=== PATIENT | male | born 1940 | race Caucasian/White ===

== ENCOUNTER 2017-02-05 15:55 | Inpatient (IN) | payer OTHER ==
[~2017-02-05] VITALS: Ht 182.9 cm; Wt 80.7 kg
--- NOTE | ~2017-02-05 | HC ---
[facility] [place] [address] CONSULTATION Name: VENUS BRENNAN Room #: 422-P ADM IN M.R.#: [id number] Admission: 02/05/17 Attend Phys: Jeffery Phillips Discharge: Date of : 42 Report #: [id number] THIS REPORT FOR: //name// CC: Lucien Gerard [facility] Jamey Lanier DO REASON FOR CONSULTATION: Reported history of metastatic adenocarcinoma. HISTORY OF PRESENT ILLNESS: The patient is a 76-year-old gentleman, who may not be the best historian, who had right flank pain who has been evaluated at the [facility], was found to have some masses in his liver and underwent a biopsy that reportedly shows adenocarcinoma. The patient does not recall whether they told or whether he had any idea where this began. He is also not clear to what treatment options they gave to him and seems quite fuzzy and I am not sure if he is either tired, if this is from medications or some cognitive impairment or mental blocking on his part, I do not know. I tried paging/texting his primary care physician to ask about details and I have not heard back. Also, I tried calling the patient's cousin, Chandrakant Irving at [phone] and no one picked up the phone. The patient at this time denies any fevers or chills. He does not feel short of breath, does feel tired. He has lost about 25 pounds in the past 6 months to a year. He has not had any blood in his urine or stool. He did have some slight queasiness and more of a generalized weakness more than anything and right abdominal pain. PAST MEDICAL HISTORY: Notable for history of stage I bladder cancer, resected with a cystectomy and a cruciate ileostomy in about 2001, also supposed history of recurrent UTIs, the recent cancer in his liver, also hypertension. ALLERGIES: HE HAS HAD TROUBLE WITH SIMVASTATIN. SOCIAL HISTORY: He used to work in [employer], had work for the [employer], had worked for [employer] at the end of his career. . He lives near [place] with a cat whose name is salo valadez that he has had for 7 years. He has stopped and started smoking, last time he smoked was within the last 6 months. He is quite fuzzy on that information. No significant alcohol. No IV drugs. FAMILY HISTORY: Does not know much about his father. It sounds like mother and father early. Mother had esophageal cancer. No siblings. He refers to two cousins, one is Chandrakant Irving. The patient lives by himself. MEDICATIONS: At home had included lisinopril and Zofran I believe. Medications here in the hospital currently include Lovenox 40 mg subcu daily, doxycycline 100 mg b.i.d., Senokot-S 2 tabs daily, OxyContin 10 mg twice daily, ceftriaxone was begun and then recently discontinued. He is on insulin. He is on multivitamins, lisinopril 20 daily, hydromorphone IV p.r.n., and Zofran p.r.n. [address] [address] CONSULTATION Name: VENUS BRENNAN Kim Room #: 422-P [facility] IN M.R.#: [id number] Admission: 02/05/17 Attend Phys: Jeffery Phillips Discharge: Date of : 42 Report #: [id number] PHYSICAL EXAMINATION: GENERAL: The patient appears his stated age. Mood: He is pleasant, somewhat reserved. He does seem like he is somewhat cognitively impaired or distracted. It is hard to tell. He was very fuzzy on some specifics about his diagnosis and his recent history. VITAL SIGNS: Height is 6 feet, which is 182.9 cm. Weight is 178 pounds, which is 80.74 kilograms. Blood pressure is 149/80, O2 sat 99%, respirations 18, pulse is 55, and temperature 98.6. NEUROLOGIC: He is alert and awake, moving all extremities. Oropharynx is clear. LUNGS: Appear to be clear without any rhonchi, wheezes, or other unusual sounds. He has symmetric expansion. HEART: Regular rate. No enlarged lymph nodes in the supraclavicular, cervical, axillary or inguinal region. ABDOMEN: Slightly tender, but not much. EXTREMITIES: Without clubbing or cyanosis, though the patient does have some right flank pain. RADIOLOGIC REVIEW: The patient had a CAT scan of abdomen and pelvis that shows a small right pleural effusion, pulmonary soft tissue nodules consistent with metastatic disease, hepatic metastasis, extensive lytic bone lesions and bone metastasis, also abdominal aortic aneurysm and renal masses, possibly cyst. No chest imaging available. LABORATORY DATA: Here on this hospital admission shows a BUN of 23, creatinine 0.7, glucose has been elevated; AST 73, total bilirubin 1.1, alkaline phosphatase 327, and albumin 2.8. White count was 14.7, most recently 12.6. DISCUSSION: Discussed with the patient that I am very worried that he has a cancer. We probably can provider a minimal benefit with systemic therapy, then we might provide benefit from radiation therapy for his painful bone mets. I have now talked with Dr. Lucien Gerard, who will bring or have forwarded the copies of the path report [facility], so that we can review these. We also talked about having radiation oncology see the patient for the possibility of radiation therapy. Dr. Gerard feels very comfortable with the palliative care discussion. So at this time, we will not plan on a consult to Dr. Lanier in palliative care. ASSESSMENT AND PLAN: 1. Metastatic adenocarcinoma, unknown primary. We will get a copy of path report from Dr. Gerard's office. At this time, I do not think the patient would be able to tolerate therapy though we have ongoing discussion with patient and his family. 2. Painful bone metastasis. Continue the opiates. We will also consult radiation oncology for their thoughts. [address] [address] CONSULTATION Name: VENUS BRENNAN Room #: 422-P [facility] IN M.R.#: [id number] Admission: 02/05/17 Attend Phys: Jeffery Phillips Discharge: Date of : 42 Report #: [id number] 3. Urinary tract infection. Continues doxycycline. 4. Hypertension. Medications as needed. 5. Diabetes. Continue watching sugars and medication management. We will follow. <ELECTRONICALLY SIGNED> By: Ervin Martinez MD 02/10/17 0749 0900 T: 06/1842 Ervin Martinez MD /nt
--- NOTE | ~2017-02-05 | EKG ---
[address] [place] [employer] [place] [address] ELECTROCARDIOGRAM REPORT Name: VENUS BRENNAN Room #: 422-P ADM IN M.R.#: [id number] Admission: 02/05/17 Attend Phys: Jeffery Phillips Discharge: Date of : 42 Report #: [id number] THIS REPORT FOR: //name// [facility] ED Test Date: 2017-02-05 Test Time: 16:38:56 Pat Name: VENUS BRENNAN Department: Room: [facility] Gender: M Datap[employer] Developer: MONALISA : 1940 Requested By: Yonathan Torres Order Number: [id number] MD: Haris Le Measurements Intervals [place] Rate: 108 P: 78 AR: 173 QRS: -85 QRSD: 81 T: 35 QT: 333 QTc: 447 Interpretive Statements Multifocal atrial tachycardia Inferior infarct, old Anterior infarct, old No previous ECG available for comparison Electronically Signed On 02-06-2017 15:58:30 CDT by Haris Le [email or web address] <ELECTRONICALLY SIGNED> By: Haris Le MD, [facility] 02/06/17 1558 1638 37 Haris Le MD, FACC /EPI
--- NOTE | ~2017-02-05 | H ---
[facility] [place] [address] [place] [address] HISTORY AND PHYSICAL Name: VENUS BRENNAN Room #: 422-P ADM IN M.R.#: [id number] Admission: 02/05/17 Attend Phys: eJffery Phillips Discharge: Date of : 42 Report #: [id number] THIS REPORT FOR: //name// CC: Froylan Gerard DATE OF SERVICE: 02/05/2017 ATTENDING PHYSICIAN: Lucien Gerard MD DATE OF ADMISSION: 02/05/2017. CHIEF COMPLAINT: Generalized weakness and right-sided abdominal pain. HISTORY OF PRESENT ILLNESS: The patient is a 76-year-old gentleman who presented to the emergency room at [facility] with complaints of intractable right-sided abdominal pain, which was progressively getting worse. The patient did report that his appetite has been poor secondary to pain. The patient was diagnosed to have metastatic liver cancer just about a week ago. He had a CT of the abdomen done which showed metastatic cancerous findings. The patient has been diagnosed with terminal liver cancer, and his biopsy was done on 01/26/2017. He has been started on oral oxycodone, but continued to have ongoing and increased pain. He does have a history of bladder carcinoma status post ileal conduit and has recurrent frequent UTIs. The patient lives alone and was not able to manage at home. The patient was admitted to the hospital and started on Dilaudid, which is helping with pain control and is currently on IV fluids. He was also noted to have elevated white cell count and is currently on IV antibiotics. PAST MEDICAL HISTORY: Significant for history of recurrent UTIs, bladder carcinoma, liver carcinoma, and hypertension. ALLERGIES: He is known to be allergic to SIMVASTATIN. MEDICATIONS: He is currently on lisinopril, Dilaudid, Zofran and Rocephin IV. SOCIAL HISTORY: The patient lives alone. He does not smoke and does not drink alcohol. REVIEW OF SYSTEMS: He denied having any chest pain or breathing difficulty. He did complain of having some mild nausea. No fever or chills. He did complain of generalized weakness. PHYSICAL EXAMINATION: GENERAL: Pleasant elderly gentleman was resting in bed, did not appear to be in any acute distress. He was awake, alert, and oriented to place and person. VITAL SIGNS: He was afebrile with pulse of 96 per minute and regular and blood [address] [address] HISTORY AND PHYSICAL Name: VENUS BRENNAN Room #: 422-P [facility] IN .R.#: [id number] Admission: 02/05/17 Attend Phys: Jeffery Phillips Discharge: Date of : 42 Report #: [id number] pressure was 156/90. HEENT: Skull was atraumatic. There was mild pallor, no icterus. Mucosa was dry. LUNGS: Clear to auscultation bilaterally with no wheezing or crackles. HEART: Heart sounds, first and second, were normal. There was no gallop or murmur. ABDOMEN: The patient had ileal conduit, and there was tenderness. No guarding or rigidity. Bowel sounds are normally heard. EXTREMITIES: Did not reveal any edema. NEUROLOGIC: The patient had generalized muscle weakness. There were no focal deficits noted. Cranial nerve examination normal. LABORATORIES ON ADMISSION: Sodium of 133, potassium 4.1, chloride of 96, bicarbonate of 26, BUN of 29, creatinine of 0.9, glucose of 231, calcium was 9.9. Total bilirubin 1.1, AST of 73, ALT of 34, alkaline phosphatase was 327. Hemoglobin was 14.9, white cell count was 14.7 and hematocrit of 44.4 and a platelet count of 157. UA was positive. Urine cultures were pending. DIAGNOSTIC DATA: CT of the abdomen, small right pleural effusion. Pulmonary soft nodules for metastatic disease and hepatic metastatic disease with extensive lytic bone lesions and bone metastasis was noted. Abdominal aortic aneurysm was noted, and renal masses, possible cyst was noted. ASSESSMENT: 1. Metastatic liver carcinoma. 2. Metastatic bone lesions. 3. Diabetes mellitus. 4. Hypertension. 5. Leukocytosis with urinary tract infection. PLAN: To continue on Dilaudid for pain control and continue the IV antibiotics. We will check repeat lab work with CBC and BMP. The patient to continue on IV fluids and increase his activity. By: 0732 1121 Dona Mayo MD /nt
--- NOTE | ~2017-02-05 | D ---
[facility] [place] [address] DISCHARGE SUMMARY Name: VENUS BRENNAN Room #: 422-P [facility] IN .R.#: [id number] Admission: 02/05/17 Attend Phys: Jeffery Phillips Discharge: 02/10/17 Date of : 42 Report #: [id number] THIS REPORT FOR: //name// CC: Froylan Gerard FINAL DIAGNOSES: 1. Metastatic adenocarcinoma of the liver and bone. 2. Hypertension. HOSPITAL COURSE: The patient was admitted with weakness and pain. He had a known previous diagnosis of metastatic carcinoma made at the [facility] via a recent liver biopsy. None of those records were available readily. Eventually, Dr. Maritnez received a handwritten note from the [facility] describing metastatic adenocarcinoma to liver and bone with the consideration of a urologic or upper GI primary. He does have a remote history of bladder cancer, I believe, treated distally. Unfortunately, his condition did not allow any treatment options at this point. His poor performance status would not allow chemotherapy. He was also too weak from a functional standpoint to participate in outpatient radiation therapy. At this point, I recommended rehabilitation service to see if he could mobilize to attend radiation for pain control if needed. However, with the use of oxycodone, both long and short acting, his pain was better controlled. Ultimately, I told him this was a terminal condition with no hope of cure and treatment really would only be palliative. He was working with his cousin, an assistant county attorney, to have his affairs in order. He requested his status changed to Do Not Resuscitate. PHYSICAL EXAMINATION: GENERAL: On the day of discharge, he was resting comfortably in the bedside chair. LUNGS: Clear. HEART: Regular. ABDOMEN: Soft with normoactive bowel sounds. Catheter was in place, which was chronic. EXTREMITIES: Showed no edema. VITAL SIGNS: Stable. DISPOSITION: He is being transferred to [facility] for ongoing care. He will need 24-hour care going forward. If his condition worsens, I would recommend they pursue hospice care and even consider inpatient if needed. DISCHARGE MEDICATIONS: Medicines will be lisinopril, OxyContin 20 mg b.i.d. and oxycodone 10 mg q. 4 hours p.r.n. [address] [address] DISCHARGE SUMMARY Name: VENUS BRENNAN Room #: 422-P [facility]#: [id number] Admission: 02/05/17 Attend Phys: Jeffery Phillips Discharge: 02/10/17 Date of : 42 Report #: [id number] CONDITION: Terminal. <ELECTRONICALLY SIGNED> By: Andreas Strange MD 02/11/17 0821 1114 1606 Andreas Strange MD /nt
[2017-02-05 15:57] VITALS: BP 133/63
[2017-02-05 16:47] LABS: HEMATOCRIT 44.4 % (42.0-52.0); HEMOGLOBIN 14.9 gm/dL (14.0-18.0); MCH 30.7 pg (26.0-34.0); MCHC 33.6 g/dL (28.0-37.0); MCV 91.5 fL (80.0-100.0); PLATELET COUNT 157 thou/uL (150-400); RBC 4.85 mil/uL (4.50-6.00); WBC 14.7 thou/uL (4.0-11.0)
[2017-02-05 16:49] LABS: MANUAL DIFF YES
[2017-02-05 16:58] LABS: ANION GAP 11 mmol/L (7-16); BUN 29 mg/dL (7-18); CALCIUM 9.9 mg/dL (8.5-10.1); CHLORIDE 96 mmol/L (98-107); CO2 26 mmol/L (21-32); CREATININE 0.9 mg/dL (0.7-1.3); GLUCOSE 231 mg/dL (74-106); POTASSIUM 4.1 mmol/L (3.5-5.1); SODIUM 133 mmol/L (136-145)
[2017-02-05 17:05] LABS: ALBUMIN 2.8 g/dL (3.4-5.0); ALKALINE PHOSPHATASE 327 U/L (46-116); SGOT 73 U/L (15-37); SGPT 34 U/L (30-65); TOTAL BILIRUBIN 1.1 mg/dL (<0.1-1.0); TOTAL PROTEIN 6.4 g/dL (6.4-8.2); TROPONIN-I < 0.04 ng/mL (<0.04-0.07)
[2017-02-05 17:38] LABS: ABSOLUTE NEUTROPHILS 12.3 thou/uL (1.4-8.2); PLATELET ESTIMATE NORMAL; TOTAL CELL COUNT 100
[2017-02-05 18:05] LABS: URINE BILIRUBIN NEGATIVE (Negative); URINE BLOOD 1+ (Negative); URINE COLOR YELLOW; URINE GLUCOSE-RANDOM* NEGATIVE (Negative); URINE KETONES NEGATIVE (Negative); URINE LEUKOCYTES-REFLEX TRACE (Negative); URINE PROTEIN (DIPSTICK) 1+ (Negative); URINE SPECIFIC GRAVITY 1.015 (1.003-1.035)
[2017-02-05 18:12] LABS: AMORPHOUS URATES Few /LPF (None Seen); SQUAMOUS None Seen /LPF (0-3); URINE WBC-REFLEX 0-5 Rare /HPF (0-5)
[2017-02-05 18:13] LABS: HYALINE CASTS 0-3 Few /LPF (None Seen); URINE RBC 0-2 Rare /HPF (0-2)
[2017-02-05 19:04] VITALS: BP 125/82
[2017-02-05 19:30] VITALS: BP 141/102
[2017-02-05] MEDS ORDERED: OXYCODONE HCL10 MG PO (22:23)
[2017-02-05] MEDS ORDERED: PRINIVIL5 MG PO (22:25)
[2017-02-05] MEDS ORDERED: CENTRUM SILVER1 EAC4 PO (22:26)
[2017-02-06 04:30] VITALS: BP 150/101
[2017-02-06 10:18] LABS: BASOPHILS 0.4 % (0.0-2.0); EOSINOPHILS 0.4 % (0.0-3.0); HEMATOCRIT 45.2 % (42.0-52.0); HEMOGLOBIN 15.2 gm/dL (14.0-18.0); LYMPHOCYTES 10.4 % (24.0-44.0); MCH 30.7 pg (26.0-34.0); MCHC 33.7 g/dL (28.0-37.0); MCV 91.2 fL (80.0-100.0); MONOCYTES 8.9 % (1.0-8.0); PLATELET COUNT 144 thou/uL (150-400); POLYS 79.9 % (36.0-66.0); RBC 4.96 mil/uL (4.50-6.00); RDW 14.1 % (10.5-14.5); WBC 12.6 thou/uL (4.0-11.0)
[2017-02-06 10:19] LABS: MANUAL DIFF NO
[2017-02-06 10:30] LABS: CALCIUM 9.6 mg/dL (8.5-10.1); CREATININE 0.7 mg/dL (0.7-1.3); POTASSIUM 3.9 mmol/L (3.5-5.1)
[2017-02-06 16:40] VITALS: BP 117/58
[2017-02-06 19:54] VITALS: BP 123/71
[2017-02-07 00:44] VITALS: BP 144/65
[2017-02-07 04:15] VITALS: BP 130/77
[2017-02-07 08:12] VITALS: BP 127/85
[2017-02-07 16:50] VITALS: BP 112/65
[2017-02-07 20:00] VITALS: BP 125/70
[2017-02-08 04:30] VITALS: BP 143/67
[2017-02-08 07:39] VITALS: BP 149/80
[2017-02-08 15:38] VITALS: BP 135/95
[2017-02-08 20:00] VITALS: BP 126/85
[2017-02-09 04:30] VITALS: BP 149/82
[2017-02-09 05:51] LABS: HEMATOCRIT 43.3 % (42.0-52.0); HEMOGLOBIN 14.5 gm/dL (14.0-18.0); MCH 30.5 pg (26.0-34.0); MCHC 33.4 g/dL (28.0-37.0); MCV 91.2 fL (80.0-100.0); RBC 4.75 mil/uL (4.50-6.00); RDW 14.4 % (10.5-14.5); WBC 11.9 thou/uL (4.0-11.0)
[2017-02-09 06:02] LABS: CALCIUM 9.7 mg/dL (8.5-10.1); CREATININE 0.7 mg/dL (0.7-1.3); POTASSIUM 3.7 mmol/L (3.5-5.1)
[2017-02-09 07:52] VITALS: BP 153/91
[2017-02-09 15:28] VITALS: BP 123/70
[2017-02-09 19:26] VITALS: BP 129/75
[2017-02-10 04:20] VITALS: BP 125/78
[2017-02-10 08:26] VITALS: BP 129/66
[2017-02-10] MEDS ORDERED: LISINOPRIL20 MG PO (11:06)
[2017-02-10] MEDS ORDERED: DOXYCYCLINE 10100 MG PO (11:06)
[2017-02-10] MEDS ORDERED: SENOKOT-S1 TA1 PO (11:07)
[2017-02-10] MEDS ORDERED: OXYCONTIN20 M1 PO (11:07)
[2017-02-10] MEDS ORDERED: OXYCODONE HCL10 MG PO (11:07)
== END 2017-02-10 14:17 | DRG 436 ==
LOC: ER 15:55 → 4E 18:06 → EROBS 18:06 → 4E 19:02
PROVIDERS: Internal Medicine; Internal Medicine Geriatric Medicine; Physician Assistant
DX: C22.8 Malignant neoplasm of liver, primary, unspecified as to type (principal); N39.0 Urinary tract infection, site not specified; C79.51 Secondary malignant neoplasm of bone; E44.0 Moderate protein-calorie malnutrition; D72.829 Elevated white blood cell count, unspecified; E11.9 Type 2 diabetes mellitus without complications; I10 Essential (primary) hypertension; Z60.2 Problems related to living alone; F17.210 Nicotine dependence, cigarettes, uncomplicated; Z85.51 Personal history of malignant neoplasm of bladder; Z88.8 Allergy status to other drugs, medicaments and biological substances; Z93.2 Ileostomy status; Z90.6 Acquired absence of other parts of urinary tract; Z68.24 Body mass index [BMI] 24.0-24.9, adult; Z80.0 Family history of malignant neoplasm of digestive organs
CPT/HCPCS: 10084